=== PATIENT | male | born 1970 | race Caucasian/White ===

== ENCOUNTER 2018-02-26 12:01 | Inpatient (IN) | payer BC, OTHER ==
[~2018-02-26] VITALS: Ht 193 cm; Wt 143.2 kg
[2018-02-26 12:31] LABS: BASOPHILS % (AUTO) 0.1 % (0-1); EOSINOPHILS # (AUTO) 0.1 X10'3 (0-0.9); EOSINOPHILS % (AUTO) 1.1 % (0-6); HEMATOCRIT 36.3 % (42.0-52.0); HEMOGLOBIN 12.6 g/dl (14.0-17.9); LYMPHOCYTES # (AUTO) 0.8 X10'3 (1.1-4.8); LYMPHOCYTES % (AUTO) 14.4 % (21-51); MEAN CORPUSCULAR HEMOGLOBIN 30.3 PG (27.0-31.0); MEAN CORPUSCULAR HGB CONC 34.6 % (33.0-36.5); MEAN CORPUSCULAR VOLUME 87.7 FL (78-98); MEAN PLATELET VOLUME 7.9 FL (7.4-10.4); MONOCYTES # (AUTO) 0.4 X10'3 (0-0.9); NEUTROPHILS # (AUTO) 4.2 X10'3 (1.8-7.7); NEUTROPHILS % (AUTO) 77.4 % (42-75); PLATELET COUNT 210 X10'3 (140-440); RED BLOOD COUNT 4.14 X10'6 (4.70-6.10); RED CELL DISTRIBUTION WIDTH 14.6 % (11.5-14.5); WHITE BLOOD COUNT 5.5 X10'3 (4.5-11.0)
[2018-02-26 12:37] LABS: PARTIAL THROMBOPLASTIN TIME 25 SECONDS (22-32); PROTHROMBIN TIME 10.2 SECONDS (9.0-12.0)
[2018-02-26] MEDS ORDERED: aspirin 81mg tab.chew PO ONE (12:40)
[2018-02-26] MEDS ORDERED: metoprolol tartrate 1mg/ml inj IV ONE (12:40)
[2018-02-26 12:43] LABS: ALANINE AMINOTRANSFERASE 62 U/L (12-78); ALBUMIN 3.9 G/DL (3.4-5.0); ALBUMIN/GLOBULIN RATIO 0.9 (1.1-1.5); ALKALINE PHOSPHATASE 81 IU/L (46-116); ANION GAP 6 (8-16); ASPARTATE AMINO TRANSFERASE 45 U/L (10-37); BILIRUBIN,TOTAL 0.6 MG/DL (0.1-1.0); BLOOD UREA NITROGEN 11 MG/DL (7-18); BUN/CREATININE RATIO 13.9 (5.4-32.0); CALCIUM 9.1 MG/DL (8.5-10.1); CHLORIDE 101 MMOL/L (99-107); CREATININE 0.79 MG/DL (0.60-1.10); GLUCOSE 181 MG/DL (70-104); POTASSIUM 4.1 MMOL/L (3.5-5.1); SODIUM 137 MMOL/L (135-145); TOTAL PROTEIN 8.1 G/DL (6.4-8.2); eGFR > 90 ML/MIN
[2018-02-26] MEDS ORDERED: magnesium 4gm in 100ml NS 100 ML IV PRN (14:00)
[2018-02-26] MEDS ORDERED: potassium Cl 20 mEq SR tablet PO PRN ×2 (14:00)
[2018-02-26] MEDS ORDERED: mag hydrox/Alum hydrox/simeth 30ml oral suspension PO PRN (14:00)
[2018-02-26] MEDS ORDERED: magnesium hydroxide 30ml (MOM) UD suspension PO PRN (14:00)
[2018-02-26] MEDS ORDERED: acetaminophen 325mg tablet PO PRN (14:00)
[2018-02-26] MEDS ORDERED: ondansetron/PF 4mg/2ml inj IV PRN (14:00)
[2018-02-26] MEDS ORDERED: potassium Cl 40MEQ/NS 500ml 500 ML IV PRN ×2 (14:00)
[2018-02-26] MEDS ORDERED: magnesium 1gm/100ml D5W IVPB 100 ML IV PRN (14:00)
[2018-02-26] MEDS ORDERED: magnesium Cl slow-release 64mg tablet PO PRN (14:00)
[2018-02-26] MEDS ORDERED: FISH12002 PO (14:09)
[2018-02-26] MEDS ORDERED: PANT-47 PO (14:09)
[2018-02-26] MEDS ORDERED: NAPR-56 PO (14:09)
[2018-02-26] MEDS ORDERED: TRAZ-146 PO (14:09)
[2018-02-26] MEDS ORDERED: FENO48TA15 PO (14:09)
[2018-02-26] MEDS ORDERED: DOCU-28 PO (14:09)
[2018-02-26] MEDS ORDERED: LEVO175T2 PO (14:09)
[2018-02-26] MEDS ORDERED: CLON0.2T PO (14:09)
[2018-02-26] MEDS ORDERED: ATOR40TA3 PO (14:09)
[2018-02-26] MEDS ORDERED: METO-384 PO (14:09)
[2018-02-26] MEDS ORDERED: OXYC-150 PO (14:09)
[2018-02-26] MEDS ORDERED: insulin Lispro (HumaLOG) vial - multi-dose SQ SCH (14:10)
[2018-02-26] MEDS ORDERED: morphine pump (14:10)
[2018-02-26] MEDS ORDERED: regadenoson 0.4mg/5ml syringe IV PRN (14:10)
[2018-02-26] MEDS ORDERED: MESSAGE TO PHARMACY PO ONE (14:10)
[2018-02-26] MEDS ORDERED: lisinopril 5mg tablet PO SCH (14:10)
[2018-02-26] MEDS ORDERED: dextrose 50%-water 50ml dispensing syringe IV PRN ×2 (14:10)
[2018-02-26] MEDS: aspirin 81mg tab.chew PO SCH (14:10)
[2018-02-26] MEDS ORDERED: nitroGLYCERIN 0.4mg SUBLingual tab SL PRN (14:10)
[2018-02-26] MEDS ORDERED: CAFFEINE CITRATE 60 MG/3 ML injection vial IV PRN (14:10)
[2018-02-26] MEDS ORDERED: glucagon, human recombinant 1mg kit SUBCUT PRN (14:10)
[2018-02-26] MEDS ORDERED: dextrose ORAL solution 15 GM/59 ML bottle PO PRN ×2 (14:10)
[2018-02-26] MEDS ORDERED: metoprolol tartrate 1mg/ml inj IV PRN (14:10)
[2018-02-26 14:39] LABS: HEMOGLOBIN A1C 6.4 % (4.5-6.2)
[2018-02-26 15:25] VITALS: BP 147/107
[2018-02-26] MEDS ORDERED: METF500T PO (15:51)
[2018-02-26] MEDS ORDERED: FLUO40CA10 PO (15:51)
[2018-02-26 19:00] VITALS: BP 175/89
[2018-02-26] MEDS ORDERED: carVEDilol 12.5mg tablet PO SCH (20:00)
[2018-02-26] MEDS: furosemide 20MG tablet PO SCH (20:20)
[2018-02-26] MEDS: heparin, porcine 5000 units/ml vial SQ SCH (20:20)
[2018-02-26] MEDS ORDERED: insulin glargine (Lantus) pen - multi-dose SQ SCH (21:00)
[2018-02-26] MEDS: oxyCODONE/APAP 10/325mg tablet PO PRN (21:52)
[2018-02-26 23:00] VITALS: BP 164/84
[2018-02-27] VITALS (11 sets, daily range): BP systolic 151–185; BP diastolic 82–95
[2018-02-27 02:35] LABS: BASOPHILS % (AUTO) 0.4 % (0-1); EOSINOPHILS # (AUTO) 0.1 X10'3 (0-0.9); EOSINOPHILS % (AUTO) 1.4 % (0-6); HEMATOCRIT 36.5 % (42.0-52.0); HEMOGLOBIN 12.5 g/dl (14.0-17.9); LYMPHOCYTES # (AUTO) 1.3 X10'3 (1.1-4.8); LYMPHOCYTES % (AUTO) 24.1 % (21-51); MEAN CORPUSCULAR HEMOGLOBIN 30.2 PG (27.0-31.0); MEAN CORPUSCULAR HGB CONC 34.2 % (33.0-36.5); MEAN CORPUSCULAR VOLUME 88.4 FL (78-98); MEAN PLATELET VOLUME 7.9 FL (7.4-10.4); MONOCYTES # (AUTO) 0.4 X10'3 (0-0.9); MONOCYTES % (AUTO) 6.9 % (2-12); NEUTROPHILS # (AUTO) 3.7 X10'3 (1.8-7.7); NEUTROPHILS % (AUTO) 67.2 % (42-75); PLATELET COUNT 237 X10'3 (140-440); RED BLOOD COUNT 4.13 X10'6 (4.70-6.10); WHITE BLOOD COUNT 5.5 X10'3 (4.5-11.0)
[2018-02-27 02:50] LABS: ALANINE AMINOTRANSFERASE 57 U/L (12-78); ALBUMIN 3.9 G/DL (3.4-5.0); ALKALINE PHOSPHATASE 80 IU/L (46-116); ANION GAP 6 (8-16); ASPARTATE AMINO TRANSFERASE 38 U/L (10-37); BILIRUBIN,TOTAL 0.6 MG/DL (0.1-1.0); BLOOD UREA NITROGEN 12 MG/DL (7-18); BUN/CREATININE RATIO 19.4 (5.4-32.0); CALCIUM 9.1 MG/DL (8.5-10.1); CHLORIDE 101 MMOL/L (99-107); CREATININE 0.62 MG/DL (0.60-1.10); GLUCOSE 134 MG/DL (70-104); POTASSIUM 3.8 MMOL/L (3.5-5.1); SODIUM 140 MMOL/L (135-145); TOTAL CARBON DIOXIDE 33.4 MMOL/L (24-32); TOTAL PROTEIN 7.9 G/DL (6.4-8.2); eGFR > 90 ML/MIN
[2018-02-27 02:53] LABS: CHOL/HDL RATIO 4.3 (0.00-4.99); CHOLESTEROL 173 MG/DL (0-200); HDL CHOLESTEROL 40 MG/DL (35-60); LDL CHOLESTEROL 86 MG/DL (50-100); MAGNESIUM 1.7 MG/DL (1.5-2.4); TRIGLYCERIDES 330 MG/DL (20-135)
[2018-02-27] MEDS ORDERED: levoTHYROXINE 175mcg tablet PO SCH (07:00)
[2018-02-27] MEDS: furosemide 20MG tablet PO SCH (08:00)
[2018-02-27] MEDS ORDERED: K and/or MAG REPLACEMENT MC SCH (08:00)
[2018-02-27] MEDS ORDERED: FLUoxetine 20mg capsule PO SCH (08:00)
[2018-02-27] MEDS ORDERED: metoprolol succinate 25mg (24-HOUR) SR. Tablet PO SCH (08:00)
[2018-02-27] MEDS: oxyCODONE/APAP 10/325mg tablet PO PRN (08:43)
[2018-02-27] MEDS: aspirin 81mg tab.chew PO SCH (08:49)
[2018-02-27] MEDS ORDERED: cloNIDine 0.1 mg tablet PO SCH (09:25)
[2018-02-27] MEDS: heparin, porcine 5000 units/ml vial SQ SCH (09:52)
[2018-02-27] MEDS ORDERED: regadenoson 0.4mg/5ml syringe IV ONE (14:57)
[2018-02-27] MEDS ORDERED: CAFFEINE CITRATE 60 MG/3 ML injection vial IV ONE (14:57)
[2018-02-27] MEDS ORDERED: docusate sod 100mg capsule PO SCH (20:00)
[2018-02-27] MEDS ORDERED: fenofibrate 48mg tablet PO SCH (21:00)
[2018-02-27] MEDS ORDERED: atorvastatin 20mg tablet PO SCH (21:00)
[2018-02-27] MEDS ORDERED: traZODone 50mg tablet PO SCH (21:00)
== END 2018-02-27 18:45 | disposition home or self-care (01) | DRG 880 ==
LOC: ER 12:01 → ED HOLD 13:59 → EDBEDREQ 15:02 → PCU 3S 15:20
PROVIDERS: ADMIT Internal Medicine; ATTEND Family Medicine
PROC: 4A02XM4 Measurement of Cardiac Total Activity, External Approach (ICD-10-PCS; principal; 2018-02-27)
PROC: 3E033HZ Introduction of Radioactive Substance into Peripheral Vein, Percutaneous Approach (ICD-10-PCS; 2018-02-27)
DX: F41.1 Generalized anxiety disorder (principal); F41.0 Panic disorder [episodic paroxysmal anxiety]; E11.9 Type 2 diabetes mellitus without complications; E66.9 Obesity, unspecified; E78.00 Pure hypercholesterolemia, unspecified; E78.5 Hyperlipidemia, unspecified; F40.240 Claustrophobia; G47.33 Obstructive sleep apnea (adult) (pediatric); G89.4 Chronic pain syndrome; I10 Essential (primary) hypertension; I16.0 Hypertensive urgency; I20.9 Angina pectoris, unspecified; K21.9 Gastro-esophageal reflux disease without esophagitis; K44.9 Diaphragmatic hernia without obstruction or gangrene; Z68.38 Body mass index [BMI] 38.0-38.9, adult; Z82.49 Family history of ischemic heart disease and other diseases of the circulatory system; Z91.19 Patient's noncompliance with other medical treatment and regimen
CPT/HCPCS: 36415; 71045; 78452; 80053; 80061; 82948; 83036; 83735; 83880; 84484; 85025; 85610; 85730; 87070; 93005; 93017; 93306; 96374; 99285; A9500; J1644; J1815; J3490

== ENCOUNTER 2018-04-17 10:14 | Day surgery (SDC) | payer BC ==
[2018-04-16 16:34] LABS: BASOPHILS % (AUTO) 0.5 % (0-1); EOSINOPHILS % (AUTO) 0.8 % (0-6); HEMOGLOBIN 12.1 g/dl (14.0-17.9); LYMPHOCYTES # (AUTO) 1.2 X10'3 (1.1-4.8); LYMPHOCYTES % (AUTO) 21.4 % (21-51); MEAN CORPUSCULAR HEMOGLOBIN 30.4 PG (27.0-31.0); MEAN CORPUSCULAR HGB CONC 34.6 % (33.0-36.5); MEAN CORPUSCULAR VOLUME 88.1 FL (78-98); MEAN PLATELET VOLUME 7.7 FL (7.4-10.4); MONOCYTES # (AUTO) 0.5 X10'3 (0-0.9); MONOCYTES % (AUTO) 8.7 % (2-12); NEUTROPHILS # (AUTO) 3.8 X10'3 (1.8-7.7); NEUTROPHILS % (AUTO) 68.6 % (42-75); PLATELET COUNT 252 X10'3 (140-440); RED BLOOD COUNT 3.98 X10'6 (4.70-6.10); RED CELL DISTRIBUTION WIDTH 14.6 % (11.5-14.5); WHITE BLOOD COUNT 5.6 X10'3 (4.5-11.0)
[2018-04-16 16:44] LABS: PARTIAL THROMBOPLASTIN TIME 25 SECONDS (22-32); PROTHROMBIN TIME 10.6 SECONDS (9.0-12.0)
[2018-04-16 16:46] LABS: ALBUMIN 4.2 G/DL (3.4-5.0); ANION GAP 6 (8-16); BLOOD UREA NITROGEN 16 MG/DL (7-18); BUN/CREATININE RATIO 19.5 (5.4-32.0); CALCIUM 9.5 MG/DL (8.5-10.1); CHLORIDE 102 MMOL/L (99-107); CREATININE 0.82 MG/DL (0.60-1.10); GLUCOSE 119 MG/DL (70-104); POTASSIUM 4.2 MMOL/L (3.5-5.1); SODIUM 140 MMOL/L (135-145); TOTAL CARBON DIOXIDE 31.6 MMOL/L (24-32); eGFR > 90 ML/MIN
[~2018-04-17] VITALS: Ht 193 cm; Wt 136.0 kg
[2018-04-17] VITALS (14 sets, daily range): BP systolic 95–150; BP diastolic 49–94
[~2018-04-17 10:14] MED LIST: ATOR40TA3 PO; CLON0.2T PO; DOCU-28 PO; FENO48TA15 PO; FISH12002 PO; FLUO40CA10 PO; LEVO175T2 PO; METF500T PO; METO-384 PO; NAPR-56 PO; OXYC-150 PO; PANT-47 PO; TRAZ-219 PO; morphine pump
[2018-04-17] MEDS ORDERED: diphenhydrAMINE 25mg capsule PO PRN (10:35)
[2018-04-17] MEDS ORDERED: normal saline 1000ml 1,000 ML IV SCH (10:35)
[2018-04-17] MEDS ORDERED: LORazepam 0.5 MG tablet PO PRN (10:35)
[2018-04-17] MEDS ORDERED: RANI300C PO (10:57)
[2018-04-17] MEDS ORDERED: ASPI81TA52 PO (10:57)
[2018-04-17] MEDS ORDERED: METO100T14 PO (10:57)
[2018-04-17] MEDS ORDERED: FISH1CAP15 PO (10:57)
[2018-04-17] MEDS ORDERED: MULT-1085 PO (10:57)
[2018-04-17] MEDS ORDERED: NITR0.4T51 SL (10:57)
[2018-04-17] MEDS ORDERED: HYDR25TA4 PO (10:57)
[2018-04-17] MEDS ORDERED: MORPHINE PUMP (11:24)
[2018-04-17] MEDS ORDERED: fentaNYL/PF 50MCG/1 ML 2ML syringe ONE (11:57)
[2018-04-17] MEDS ORDERED: midazolam 2 mg/2 ml injection ONE (11:57)
[2018-04-17] MEDS ORDERED: heparin 1,000unit/ml 10ml vial 10 ML ONE (11:58)
[2018-04-17] MEDS ORDERED: lidocaine 1%/epinephrine 1:100,000 injection 50ml vial ONE (11:58)
[2018-04-17] MEDS ORDERED: iohexol 350MG/ML 100ml bottle IV ONE (11:58)
[2018-04-17] MEDS ORDERED: nitroGLYCERIN-Tridil 50MG/D5W 250 ML IV ONE (11:58)
[2018-04-17] MEDS ORDERED: iohexol 350 MG/ML 50ML vial IV ONE (11:58)
[2018-04-17] MEDS ORDERED: heparin 1,000 UNITS/NS 500ml 500 ML ONE (11:58)
[2018-04-17] MEDS ORDERED: diltiazem 5mg/ml 5ml inj. IV ONE (13:11)
[2018-04-17] MEDS ORDERED: oxyCODONE/APAP 10/325mg tablet PO PRN ×2 (16:00)
== END 2018-04-17 19:55 | disposition home or self-care (01) ==
LOC: SSTAY O 10:14
PROVIDERS: ATTEND Internal Medicine Cardiovascular Disease
DX: I25.118 Atherosclerotic heart disease of native coronary artery with other forms of angina pectoris (principal); I10 Essential (primary) hypertension; E11.9 Type 2 diabetes mellitus without complications; E78.5 Hyperlipidemia, unspecified; E66.9 Obesity, unspecified; E03.9 Hypothyroidism, unspecified; F41.8 Other specified anxiety disorders; K21.9 Gastro-esophageal reflux disease without esophagitis; F32.9 Major depressive disorder, single episode, unspecified; G47.33 Obstructive sleep apnea (adult) (pediatric); Z90.49 Acquired absence of other specified parts of digestive tract; Z79.82 Long term (current) use of aspirin; Z68.36 Body mass index [BMI] 36.0-36.9, adult; Z87.891 Personal history of nicotine dependence; Z79.891 Long term (current) use of opiate analgesic; Z79.84 Long term (current) use of oral hypoglycemic drugs; Z79.899 Other long term (current) drug therapy; Z98.890 Other specified postprocedural states; Z82.49 Family history of ischemic heart disease and other diseases of the circulatory system
CPT/HCPCS: 36415; 80048; 85025; 85610; 85730; 93005; 93458; 99152; 99153; A6257; A6449; C1769; J1644; J2250; J3010; J3490; J7030; Q0163; Q9967; A4620

== ENCOUNTER 2018-04-29 07:15 | Day surgery (SDC) | payer BC ==
[2018-04-25 10:39] LABS: BASOPHILS % (AUTO) 0.5 % (0-1); EOSINOPHILS % (AUTO) 1.2 % (0-6); LYMPHOCYTES # (AUTO) 0.9 X10'3 (1.1-4.8); LYMPHOCYTES % (AUTO) 21.3 % (21-51); MEAN CORPUSCULAR HEMOGLOBIN 30.2 PG (27.0-31.0); MEAN CORPUSCULAR HGB CONC 33.9 % (33.0-36.5); MEAN PLATELET VOLUME 7.5 FL (7.4-10.4); MONOCYTES # (AUTO) 0.4 X10'3 (0-0.9); MONOCYTES % (AUTO) 10.1 % (2-12); NEUTROPHILS # (AUTO) 2.8 X10'3 (1.8-7.7); NEUTROPHILS % (AUTO) 66.9 % (42-75); PRE OP HEMATOCRIT 34.2 % (42.0-52.0); PRE OP HEMOGLOBIN 11.6 g/dL (14.0-17.9); PRE OP PLATELET COUNT 226 X10'3 (140-440); RED BLOOD COUNT 3.84 X10'6 (4.70-6.10); RED CELL DISTRIBUTION WIDTH 14.6 % (11.5-14.5)
[2018-04-25 10:40] LABS: CLARITY,URINE CLEAR (Clear); COLOR,URINE YELLOW (Yellow); GLUCOSE, URINE 100 mg/dl (Neg); KETONES,URINE NEGATIVE (Neg); LEUKOCYTE ESTERASE ,URINE NEGATIVE (Neg); NITRITES, URINE NEGATIVE (Neg); OCCULT BLOOD,URINE NEGATIVE (Neg); PH,URINE 5.5 (4.8-8.0); PROTEIN,URINE 30 mg/dl (Neg); UA COLLECTION TYPE NON-SPECIFIED; UROBILINOGEN,URINE 0.2 E.U/dL (0.2-1.0)
[2018-04-25 10:45] LABS: BACTERIA,URINE NONE SEEN /HPF (Neg); RBC,URINE 0-2 /HPF (0-2); SQUAMOUS EPITHELIAL CELL,UR FEW /LPF (FEW); WBC,URINE 0-4 /HPF (0-4)
[2018-04-25 10:49] LABS: PRE OP PROTIME 10.1 SECONDS (9.0-12.0)
[2018-04-25 11:02] LABS: ALBUMIN 3.8 G/DL (3.4-5.0); ALKALINE PHOSPHATASE 89 IU/L (46-116); BLOOD UREA NITROGEN 17 MG/DL (7-18); BUN/CREATININE RATIO 20.7 (5.4-32.0); CALCIUM 9.1 MG/DL (8.5-10.1); CHLORIDE 101 MMOL/L (99-107); CREATININE 0.82 MG/DL (0.60-1.10); PRE OP ALT 48 U/L (30-65); PRE OP ANION GAP 7 (8-16); PRE OP AST 35 U/L (10-37); PRE OP BILIRUB, TOTAL 0.5 MG/DL (0.0-1.0); PRE OP POTASSIUM 4.3 MMOL/L (3.4-5.1); PRE OP SODIUM 141 MMOL/L (135-145); TOTAL CARBON DIOXIDE 33.2 MMOL/L (24-32); TOTAL PROTEIN 7.6 G/DL (6.4-8.2); eGFR > 90 ML/MIN
[2018-04-25 11:05] LABS: PRE OP GLUCOSE 223 MG/DL (70-104)
[2018-04-29] VITALS (11 sets, daily range): BP systolic 151–167; BP diastolic 80–100
[~2018-04-29] VITALS: Ht 193 cm; Wt 136.5 kg
[~2018-04-29 07:15] MED LIST changes: +ASPI81TA52 PO; +DOCUMENT DATE & TIME OF BETA-BLOCKER PO ONE; -FISH12002 PO; +FISH1CAP15 PO; +HYDR25TA4 PO; -METO-384 PO; +METO-411 PO; +NITR0.4T51 SL; +ceFAZolin inj. 3,000 MG in normal saline 100ml IV soln 100 ML IV ONE; +famotidine 20mg tablet PO ONE; -morphine pump; +ringers solution, lacted 1,000 ML IV SCH
[2018-04-29] MEDS ORDERED: MORPHINE INTSP (08:12)
[2018-04-29] MEDS ORDERED: ringers solution, lacted 1,000 ML IV SCH (09:11)
[2018-04-29] MEDS ORDERED: meperidine/PF 25mg/ml syringe IV PRN ×3 (09:15)
[2018-04-29] MEDS ORDERED: morphine 4 MG/ML inj SYRINge IV PRN ×2 (09:15)
[2018-04-29] MEDS ORDERED: ondansetron/PF 4mg/2ml inj IV PRN (09:15)
[2018-04-29] MEDS ORDERED: proCHLORperazine 10 MG/2 ml inj IV PRN (09:15)
[2018-04-29] MEDS ORDERED: ceFAZolin 1000mg inj ONE (09:38)
[2018-04-29] MEDS ORDERED: BUPIVAcaine/PF 2.5mg/ml (0.25%) 10ml vial ONE (09:38)
[2018-04-29] MEDS ORDERED: LIDOcaine 1%/PF 5ML 10 MG/ML VIAL ONE (09:48)
[2018-04-29] MEDS ORDERED: dexamethasone sod phosphate 10mg/ml inj ONE (09:48)
[2018-04-29] MEDS ORDERED: sevoflurane 250ml liquid IH ONE (09:48)
[2018-04-29] MEDS ORDERED: ondansetron/PF 4mg/2ml inj ONE (09:48)
[2018-04-29] MEDS ORDERED: propofol 10mg/ml 20ml vial IV ONE (09:48)
[2018-04-29] MEDS ORDERED: fentaNYL/PF 50MCG/1 ML 2ML syringe ONE ×2 (09:58→10:41)
[2018-04-29] MEDS ORDERED: midazolam 2 mg/2 ml injection ONE (10:00)
[2018-04-29] MEDS ORDERED: propofol inj 20 ML IV ONE (10:00)
[2018-04-29] MEDS ORDERED: ketorolac trometh. 30mg/ml inj. ONE (11:11)
== END 2018-04-29 12:48 | disposition home or self-care (01) ==
LOC: PRE-OP 07:15
PROVIDERS: ATTEND Surgery
DX: K40.90 Unilateral inguinal hernia, without obstruction or gangrene, not specified as recurrent (principal); D17.6 Benign lipomatous neoplasm of spermatic cord; G89.29 Other chronic pain; I10 Essential (primary) hypertension; E66.9 Obesity, unspecified; I25.10 Atherosclerotic heart disease of native coronary artery without angina pectoris; E78.5 Hyperlipidemia, unspecified; K21.9 Gastro-esophageal reflux disease without esophagitis; E03.9 Hypothyroidism, unspecified; E11.9 Type 2 diabetes mellitus without complications; F32.9 Major depressive disorder, single episode, unspecified; Z68.36 Body mass index [BMI] 36.0-36.9, adult; Z87.891 Personal history of nicotine dependence; Z90.49 Acquired absence of other specified parts of digestive tract; Z79.891 Long term (current) use of opiate analgesic; Z79.82 Long term (current) use of aspirin; Z79.84 Long term (current) use of oral hypoglycemic drugs; Z98.890 Other specified postprocedural states; Z79.899 Other long term (current) drug therapy
CPT/HCPCS: 36415; 49505; 80053; 81001; 82948; 85025; 85610; 85730; A6449; C1781; J0690; J1100; J1885; J2001; J2175; J2250; J2405; J2704; J3010; J3490; J7030; J7120; A7000

== ENCOUNTER 2019-03-16 12:35 | Inpatient (IN) | payer BC ==
[~2019-03-16] VITALS: Ht 193 cm; Wt 135.9 kg
[~2019-03-16 12:35] MED LIST changes: -ATOR40TA3 PO; +ATOR40TA7 PO; -DOCU-28 PO; -DOCUMENT DATE & TIME OF BETA-BLOCKER PO ONE; +MORPHINE INTSP; -ceFAZolin inj. 3,000 MG in normal saline 100ml IV soln 100 ML IV ONE; -famotidine 20mg tablet PO ONE; -ringers solution, lacted 1,000 ML IV SCH
[2019-03-16 13:12] LABS: BASOPHILS % (AUTO) 0.5 % (0-1); EOSINOPHILS % (AUTO) 0.1 % (0-6); HEMATOCRIT 39.3 % (42.0-52.0); HEMOGLOBIN 13.2 g/dl (14.0-17.9); LYMPHOCYTES # (AUTO) 0.7 X10'3 (1.1-4.8); LYMPHOCYTES % (AUTO) 10.5 % (21-51); MEAN CORPUSCULAR HEMOGLOBIN 29.7 PG (27.0-31.0); MEAN CORPUSCULAR HGB CONC 33.4 g/dL (33.0-36.5); MEAN CORPUSCULAR VOLUME 88.7 FL (78-98); MEAN PLATELET VOLUME 7.7 FL (7.4-10.4); MONOCYTES # (AUTO) 0.3 X10'3 (0-0.9); MONOCYTES % (AUTO) 4.4 % (2-12); NEUTROPHILS # (AUTO) 5.8 X10'3 (1.8-7.7); NEUTROPHILS % (AUTO) 84.5 % (42-75); PLATELET COUNT 247 X10'3 (140-440); RED BLOOD COUNT 4.44 X10'6 (4.70-6.10); WHITE BLOOD COUNT 6.9 X10'3 (4.5-11.0)
[2019-03-16 13:21] LABS: ALANINE AMINOTRANSFERASE 50 U/L (12-78); ALBUMIN/GLOBULIN RATIO 0.9 (1.1-1.5); ALKALINE PHOSPHATASE 76 IU/L (46-116); ANION GAP 11 (8-16); ASPARTATE AMINO TRANSFERASE 41 U/L (10-37); BILIRUBIN,TOTAL 0.5 MG/DL (0.1-1.0); BLOOD UREA NITROGEN 10 MG/DL (7-18); BUN/CREATININE RATIO 11.1 (5.4-32.0); CALCIUM 9.4 MG/DL (8.5-10.1); CHLORIDE 102 MMOL/L (99-107); GLUCOSE 187 MG/DL (70-104); POTASSIUM 3.5 MMOL/L (3.5-5.1); SODIUM 140 MMOL/L (135-145); TOTAL CARBON DIOXIDE 27.4 MMOL/L (24-32); TOTAL PROTEIN 8.3 G/DL (6.4-8.2); eGFR 90 ML/MIN
[2019-03-16] MEDS ORDERED: normal saline 1000ML IV soln IVB ONE (13:25)
[2019-03-16 13:28] LABS: PARTIAL THROMBOPLASTIN TIME 27 SECONDS (22-32)
[2019-03-16 14:12] LABS: D-DIMER 0.23 MG/L FEU (0-0.50)
[2019-03-16] MEDS ORDERED: LORazepam 2 mg/ml vial IV ONE ×2 (14:40→17:35)
[2019-03-16] MEDS ORDERED: ketorolac tromethamine 15mg/ml inj. IV ONE (14:45)
[2019-03-16] MEDS ORDERED: OMEP40CA13 PO (15:00)
[2019-03-16] MEDS ORDERED: MULT1TAB74 PO (15:32)
[2019-03-16] MEDS ORDERED: RANI300T4 PO (15:32)
[2019-03-16] MEDS ORDERED: GABA-532 PO (15:32)
[2019-03-16] MEDS ORDERED: ondansetron/PF 4mg/2ml inj IV PRN (15:35)
[2019-03-16] MEDS ORDERED: magnesium 4gm in 100ml NS 100 ML IV PRN (15:35)
[2019-03-16] MEDS ORDERED: mag hydrox/Alum hydrox/simeth 30ml oral suspension PO PRN (15:35)
[2019-03-16] MEDS ORDERED: magnesium 2GM in 50ml NS 50 ML IV PRN (15:35)
[2019-03-16] MEDS ORDERED: magnesium hydroxide 30ml (MOM) UD suspension PO PRN (15:35)
[2019-03-16] MEDS ORDERED: potassium CL 10mEq/100ml bag 100 ML IV PRN ×2 (15:35)
[2019-03-16] MEDS ORDERED: acetaminophen 325mg tablet PO PRN (15:35)
[2019-03-16] MEDS ORDERED: potassium Cl 20 mEq SR tablet PO PRN ×2 (15:35)
[2019-03-16] MEDS ORDERED: dextrose 50%-water 50ml dispensing syringe IV PRN ×2 (16:50)
[2019-03-16] MEDS ORDERED: dextrose ORAL solution 15 GM/59 ML bottle PO PRN ×2 (16:50)
[2019-03-16] MEDS ORDERED: MESSAGE TO PHARMACY PO ONE (16:50)
[2019-03-16] MEDS ORDERED: glucagon, human recombinant 1mg kit SUBCUT PRN (16:50)
[2019-03-16 17:23] LABS: HEMOGLOBIN A1C 6.2 % (4.5-6.2)
[2019-03-16 19:30] VITALS: BP 190/97
--- NOTE | 2019-03-16 19:30 | NUR ---
I have received report from Zhanna QUINTERO and had the opportunity to ask questions and assume patient care.
[2019-03-16 19:40] VITALS: BP 179/102
[2019-03-16] MEDS ORDERED: LORazepam 2 mg/ml vial IV PRN (20:05)
[2019-03-16] MEDS: omega-3 acid ethyl esters 1GM capsule PO SCH (20:14)
[2019-03-16 20:41] LABS: CLARITY,URINE CLEAR (Clear); COLOR,URINE YELLOW (Yellow); GLUCOSE, URINE 100 mg/dl (Neg); KETONES,URINE NEGATIVE (Neg); LEUKOCYTE ESTERASE ,URINE NEGATIVE (Neg); NITRITES, URINE NEGATIVE (Neg); OCCULT BLOOD,URINE NEGATIVE (Neg); PH,URINE 7.5 (4.8-8.0); PROTEIN,URINE 30 mg/dl (Neg); UROBILINOGEN,URINE 0.2 E.U/dL (0.2-1.0)
[2019-03-16 20:47] LABS: UA COLLECTION TYPE NON-SPECIFIED; URINE AMPHETAMINE SCREEN NEGATIVE (Neg); URINE BARBITUATE SCREEN NEGATIVE (Neg); URINE BENZODIAZEPINES SCREEN NEGATIVE (Neg); URINE CANNABINOID SCREEN NEGATIVE (Neg); URINE COCAINE SCREEN NEGATIVE (Neg); URINE METHADONE SCREEN NEGATIVE (Neg); URINE OPIATE SCREEN POSITIVE (Neg); URINE PHENCYCLIDINE SCREEN NEGATIVE (Neg)
[2019-03-16 20:53] LABS: BACTERIA,URINE FEW /HPF (Neg); RBC,URINE 0-2 /HPF (0-2); SQUAMOUS EPITHELIAL CELL,UR FEW /LPF (FEW); WBC,URINE 0-4 /HPF (0-4)
[2019-03-16 21:00] VITALS: BP 187/104
[2019-03-16] MEDS ORDERED: insulin glargine (Lantus) pen - multi-dose SQ SCH (21:00)
[2019-03-16] MEDS ORDERED: traZODone 50mg tablet PO SCH (21:00)
[2019-03-16] MEDS ORDERED: non-formulary drug (Trazodone HCl 1 TAB) PO SCH (21:00)
[2019-03-16] MEDS ORDERED: non-formulary drug (Fish Oil/Dha/Epa (Fish Oil 1,200 Mg Fish Oil) 1 EACH) PO SCH (21:00)
[2019-03-16] MEDS ORDERED: atorvastatin 20mg tablet PO SCH (21:00)
[2019-03-16] MEDS ORDERED: gabapentin 300mg capsule PO SCH (21:00)
[2019-03-16] MEDS ORDERED: non-formulary drug (Atorvastatin Calcium (Lipitor) 1 TABLET) PO SCH (21:00)
[2019-03-16] MEDS ORDERED: temazepam 15mg capsule PO PRN (22:05)
[2019-03-16 22:10] LABS: ABG BASE EXCESS 1.2 mmol/L (-2.0-3.0); ABG HCO3 24.5 mmol/L (22.0-26.0); ABG OXYGEN SATURATION 94.4 % (95-98); ABG PCO2 (T) 34.4 mmHg (35.0-45.0); ABG PO2 (T) 71.9 mmHg (83-108); FCOHb 0.5 % (0.5-1.5); FMetHb 0.2 % (0.3-1.12); FO2Hb 93.7 % (94-100); RESPIRATORY RATE (OBSERVED) 16 b/min; TOTAL HEMOGLOBIN 12.1 G/dl (14.0-17.9)
[2019-03-17 01:30] LABS: BASOPHILS % (AUTO) 0.4 % (0-1); EOSINOPHILS % (AUTO) 0.1 % (0-6); HEMATOCRIT 33.7 % (42.0-52.0); HEMOGLOBIN 11.4 g/dl (14.0-17.9); LYMPHOCYTES # (AUTO) 1.3 X10'3 (1.1-4.8); MEAN CORPUSCULAR HEMOGLOBIN 29.8 PG (27.0-31.0); MEAN CORPUSCULAR VOLUME 87.7 FL (78-98); MEAN PLATELET VOLUME 7.7 FL (7.4-10.4); MONOCYTES # (AUTO) 0.5 X10'3 (0-0.9); MONOCYTES % (AUTO) 7.2 % (2-12); NEUTROPHILS # (AUTO) 5.6 X10'3 (1.8-7.7); NEUTROPHILS % (AUTO) 75.3 % (42-75); PLATELET COUNT 207 X10'3 (140-440); RED BLOOD COUNT 3.84 X10'6 (4.70-6.10); WHITE BLOOD COUNT 7.4 X10'3 (4.5-11.0)
[2019-03-17 01:43] LABS: ALANINE AMINOTRANSFERASE 43 U/L (12-78); ALBUMIN 3.5 G/DL (3.4-5.0); ALBUMIN/GLOBULIN RATIO 0.9 (1.1-1.5); ALKALINE PHOSPHATASE 61 IU/L (46-116); ANION GAP 7 (8-16); ASPARTATE AMINO TRANSFERASE 31 U/L (10-37); BILIRUBIN,TOTAL 0.4 MG/DL (0.1-1.0); BLOOD UREA NITROGEN 9 MG/DL (7-18); BUN/CREATININE RATIO 11.3 (5.4-32.0); CALCIUM 8.5 MG/DL (8.5-10.1); CHLORIDE 106 MMOL/L (99-107); GLUCOSE 143 MG/DL (70-104); POTASSIUM 3.4 MMOL/L (3.5-5.1); SODIUM 143 MMOL/L (135-145); TOTAL CARBON DIOXIDE 29.6 MMOL/L (24-32); TOTAL PROTEIN 7.2 G/DL (6.4-8.2); eGFR > 90 ML/MIN
[2019-03-17 01:46] LABS: CHOLESTEROL 147 MG/DL (0-200); HDL CHOLESTEROL 37 MG/DL (35-60); LDL CHOLESTEROL 77 MG/DL (50-100); MAGNESIUM 1.5 MG/DL (1.5-2.4); TRIGLYCERIDES 192 MG/DL (20-135)
[2019-03-17 02:00] VITALS: BP 150/81
[2019-03-17 06:00] VITALS: BP 167/95
--- NOTE | 2019-03-17 06:20 | NUR ---
Problems reprioritized. Patient report given, questions answered & plan of care reviewed with Shanta QUINTERO.
--- NOTE | 2019-03-17 06:22 | NUR ---
Patient in room ORTHO 4014. I have received report from INGRID Hou and had the opportunity to ask questions and assume patient care.
--- NOTE | 2019-03-17 07:30 | NUR ---
Pt seen for assessment; neuro assessment normal. No confusion. States "feels 100 times better and back to normal". is at bedside and in agreement.
[2019-03-17] MEDS ORDERED: famotidine 20mg tablet PO SCH (08:00)
[2019-03-17] MEDS ORDERED: levoTHYROXINE 175mcg tablet PO SCH (08:00)
[2019-03-17] MEDS ORDERED: FLUoxetine 20mg capsule PO SCH (08:00)
[2019-03-17] MEDS ORDERED: non-formulary drug (Multivitamins 1 TAB) PO SCH (08:00)
[2019-03-17] MEDS ORDERED: non-formulary drug (Metoprolol Succinate 1 TAB) PO SCH (08:00)
[2019-03-17] MEDS ORDERED: pneumococcal 23-VAL P-sac vacc 25 mcg/0.5ml vial IMVAC ONE (08:00)
[2019-03-17] MEDS ORDERED: non-formulary drug (Ranitidine HCl 1 TAB) PO SCH (08:00)
[2019-03-17] MEDS ORDERED: HYDROchlorothiazide 25mg tablet PO SCH (08:00)
[2019-03-17] MEDS ORDERED: non-formulary drug (Fluoxetine HCl (Prozac) 1 CAP) PO SCH (08:00)
[2019-03-17] MEDS ORDERED: aspirin 81mg tablet.DR PO SCH (08:00)
[2019-03-17] MEDS ORDERED: metoprolol succinate 25mg (24-HOUR) SR. Tablet PO SCH (08:00)
[2019-03-17] MEDS ORDERED: fenofibrate 48mg tablet PO SCH (08:00)
[2019-03-17] MEDS ORDERED: multivitamins, therapeutics tablet PO SCH (08:00)
[2019-03-17] MEDS ORDERED: pantoprazole 40mg Tablet.DR PO SCH (08:00)
[2019-03-17] MEDS ORDERED: K and/or MAG REPLACEMENT MC SCH (08:00)
[2019-03-17] MEDS ORDERED: enoxaparin 40mg/0.4ml syringe SQ SCH (08:00)
[2019-03-17] MEDS: MISCELLANEOUS INJECTION IV SCH ×2 (08:00→16:01)
[2019-03-17] MEDS: omega-3 acid ethyl esters 1GM capsule PO SCH ×2 (08:30→13:11)
[2019-03-17] MEDS: insulin Lispro (HumaLOG) vial - multi-dose SQ SCH ×2 (08:38→13:39)
[2019-03-17] MEDS ORDERED: LORazepam 2 mg/ml vial IV ONE (09:40)
[2019-03-17 10:00] VITALS: BP 176/93
--- NOTE | 2019-03-17 14:01 | NUR ---
DM Consult: Pt A1C <7 and not appropriate for DM ed at this time. Addendum: 03/17/19 at [address] Amended: Links added.
== END 2019-03-17 18:40 | disposition home or self-care (01) | DRG 92 ==
LOC: ER 12:35 → ORTHO 4S 18:50 → CMPBEDREQ 19:45
PROVIDERS: ADMIT Family Medicine; ATTEND Family Medicine
PROC: 3E0234Z Introduction of Serum, Toxoid and Vaccine into Muscle, Percutaneous Approach (ICD-10-PCS; principal; 2019-03-17)
DX: G92 Toxic encephalopathy (principal); R44.3 Hallucinations, unspecified; E03.9 Hypothyroidism, unspecified; E11.9 Type 2 diabetes mellitus without complications; E78.00 Pure hypercholesterolemia, unspecified; G47.33 Obstructive sleep apnea (adult) (pediatric); R19.7 Diarrhea, unspecified; I10 Essential (primary) hypertension; Z98.1 Arthrodesis status; Z23 Encounter for immunization; Z79.899 Other long term (current) drug therapy; Z79.82 Long term (current) use of aspirin
CPT/HCPCS: 36415; 36600; 70450; 70544; 70547; 70551; 71045; 80053; 80061; 80305; 81001; 82803; 82948; 83036; 83605; 83735; 83880; 84145; 84443; 84484; 85018; 85025; 85379; 85610; 85730; 87040; 87081; 90732; 92508; 92616; 93005; 93306; 93880; 96361; 96374; 96375; 96376; 97110; 97161; 97530; 99285; G0378; J1650; J1815; J1885; J2060

== ENCOUNTER 2019-04-17 13:04 | Observation (INO) | payer BC ==
[~2019-04-17] VITALS: Ht 193 cm; Wt 134.1 kg
[~2019-04-17 13:04] MED LIST changes: -CLON0.2T PO; +GABA-532 PO; +MULT1TAB74 PO; -NAPR-56 PO; -NITR0.4T51 SL; -OXYC-150 PO; +RANI300T4 PO
[2019-04-17 13:45] LABS: BASOPHILS % (AUTO) 0.4 % (0-1); EOSINOPHILS % (AUTO) 0.1 % (0-6); HEMATOCRIT 36.2 % (42.0-52.0); HEMOGLOBIN 11.9 g/dl (14.0-17.9); LYMPHOCYTES # (AUTO) 0.8 X10'3 (1.1-4.8); LYMPHOCYTES % (AUTO) 13.6 % (21-51); MEAN CORPUSCULAR HEMOGLOBIN 29.2 PG (27.0-31.0); MEAN CORPUSCULAR HGB CONC 32.9 g/dL (33.0-36.5); MEAN CORPUSCULAR VOLUME 88.6 FL (78-98); MEAN PLATELET VOLUME 7.4 FL (7.4-10.4); MONOCYTES # (AUTO) 0.3 X10'3 (0-0.9); MONOCYTES % (AUTO) 4.6 % (2-12); NEUTROPHILS # (AUTO) 4.8 X10'3 (1.8-7.7); NEUTROPHILS % (AUTO) 81.3 % (42-75); PLATELET COUNT 282 X10'3 (140-440); RED BLOOD COUNT 4.09 X10'6 (4.70-6.10); RED CELL DISTRIBUTION WIDTH 15.2 % (11.5-14.5); WHITE BLOOD COUNT 5.9 X10'3 (4.5-11.0)
[2019-04-17 13:58] LABS: PARTIAL THROMBOPLASTIN TIME 25 SECONDS (22-32)
[2019-04-17 14:02] LABS: ALANINE AMINOTRANSFERASE 51 U/L (12-78); ALBUMIN 3.8 G/DL (3.4-5.0); ALBUMIN/GLOBULIN RATIO 0.9 (1.1-1.5); ALKALINE PHOSPHATASE 72 IU/L (46-116); ANION GAP 9 (8-16); ASPARTATE AMINO TRANSFERASE 36 U/L (10-37); BILIRUBIN,TOTAL 0.6 MG/DL (0.1-1.0); BLOOD UREA NITROGEN 9 MG/DL (7-18); CALCIUM 10.2 MG/DL (8.5-10.1); CHLORIDE 104 MMOL/L (99-107); CREATININE 0.75 MG/DL (0.60-1.10); GLUCOSE 176 MG/DL (70-104); POTASSIUM 3.7 MMOL/L (3.5-5.1); SODIUM 141 MMOL/L (135-145); TOTAL CARBON DIOXIDE 27.7 MMOL/L (24-32); eGFR > 90 ML/MIN
[2019-04-17] MEDS ORDERED: normal saline 1000ML IV soln IVB ONE ×2 (14:35→16:30)
[2019-04-17] MEDS ORDERED: sucralfate 1gm/10ml UD suspension PO STA (16:08)
[2019-04-17] MEDS ORDERED: mag hydrox/Alum hydrox/simeth 30ml oral suspension PO ONE (16:10)
[2019-04-17] MEDS ORDERED: pantoprazole 40 MG vial IV ONE (16:10)
[2019-04-17] MEDS ORDERED: LIDOcaine Viscous 15ml cup MM PRN (16:10)
[2019-04-17] MEDS ORDERED: ONDA4TAB6 PO (16:23)
[2019-04-17 16:54] LABS: ETHANOL < 0.010 GM/DL (0.0-0.010); MAGNESIUM 1.4 MG/DL (1.5-2.4)
[2019-04-17 17:04] LABS: CLARITY,URINE CLEAR (Clear); COLOR,URINE YELLOW (Yellow); GLUCOSE, URINE NEGATIVE (Neg); KETONES,URINE NEGATIVE (Neg); LEUKOCYTE ESTERASE ,URINE NEGATIVE (Neg); NITRITES, URINE NEGATIVE (Neg); OCCULT BLOOD,URINE NEGATIVE (Neg); PH,URINE 7.5 (4.8-8.0); PROTEIN,URINE NEGATIVE (Neg); UROBILINOGEN,URINE 0.2 E.U/dL (0.2-1.0)
[2019-04-17 17:06] LABS: UA COLLECTION TYPE VOIDED
[2019-04-17 17:19] LABS: URINE AMPHETAMINE SCREEN NEGATIVE (Neg); URINE BARBITUATE SCREEN NEGATIVE (Neg); URINE BENZODIAZEPINES SCREEN NEGATIVE (Neg); URINE CANNABINOID SCREEN NEGATIVE (Neg); URINE COCAINE SCREEN NEGATIVE (Neg); URINE METHADONE SCREEN NEGATIVE (Neg); URINE OPIATE SCREEN NEGATIVE (Neg); URINE PHENCYCLIDINE SCREEN NEGATIVE (Neg)
--- NOTE | 2019-04-17 17:58 | NUR ---
PT YELLING OUT HELP, HE STATES HIS SKIN IS CRAWLING AND HE FEEL LIKE HE IS "WITHDRAWING" HIS STATE THE SAME THING HAPPENED 1 MONTH AGO WHEN HE WAS HER WITH SAME S/S. ATTEMPTED TO FIND DR BECKMAN FOR THE PAST 15MIN. NOT ABLE TO FIND HIM. MALI VIGIL NOTIFED.
--- NOTE | 2019-04-17 18:12 | NUR ---
PTS CAME UP AGAIN AND STATES PT IS REALY ANXIOUS. AGAIN ATTEPTED TO FIND DR BECKMAN. MALI VIGIL NOTIFIED SHE WAS ABLE TO CALL DR BECKMAN ON HIS CELL PHONE. PT NOW AT BS TO SEE PT
[2019-04-17] MEDS ORDERED: magnesium oxide 400mg tablet PO ONE (18:15)
[2019-04-17] MEDS ORDERED: MAGN200T8 PO (18:16)
[2019-04-17] MEDS ORDERED: QUET25TA PO (18:29)
[2019-04-17] MEDS ORDERED: diphenhydrAMINE 25mg capsule PO ONE (18:30)
[2019-04-17] MEDS ORDERED: OLANZapine 5mg rapidly disint. tablet PO ONE (18:30)
[2019-04-17] MEDS ORDERED: diphenhydrAMINE 50 mg/ml inj IV ONE (18:35)
[2019-04-17] MEDS ORDERED: benztropine 1mg tablet PO SCH (18:40)
[2019-04-17] MEDS ORDERED: mag hydrox/Alum hydrox/simeth 30ml oral suspension PO PRN (19:35)
[2019-04-17] MEDS ORDERED: morphine 2 MG/ML inj. syringe IV PRN ×2 (19:35)
[2019-04-17] MEDS ORDERED: HYDROcodone/acetaminophen 5mg/325mg tablet PO PRN (19:35)
[2019-04-17] MEDS ORDERED: acetaminophen 325mg tablet PO PRN ×2 (19:35)
[2019-04-17] MEDS ORDERED: magnesium hydroxide 30ml (MOM) UD suspension PO PRN (19:35)
[2019-04-17] MEDS ORDERED: ondansetron/PF 4mg/2ml inj IV PRN (19:35)
--- NOTE | 2019-04-17 20:41 | NUR ---
Received report form Magy QUINTERO. Will assume patient care.
[2019-04-17 21:00] VITALS: BP 181/94
[2019-04-17 22:03] VITALS: BP 175/91
--- NOTE | 2019-04-17 22:10 | NUR ---
Dr. Buchanan in to see patient.
[2019-04-17] MEDS ORDERED: loperamide 2mg capsule PO PRN (22:15)
[2019-04-17] MEDS ORDERED: furosemide 20 MG/2 ML vial IV ONE (22:15)
[2019-04-17] MEDS ORDERED: glucagon, human recombinant 1mg kit SUBCUT PRN (22:35)
[2019-04-17] MEDS ORDERED: insulin Lispro (HumaLOG) vial - multi-dose SQ SCH (22:35)
[2019-04-17] MEDS ORDERED: dextrose 50%-water 50ml dispensing syringe IV PRN ×2 (22:35)
[2019-04-17] MEDS ORDERED: MESSAGE TO PHARMACY PO ONE (22:35)
[2019-04-17] MEDS ORDERED: dextrose ORAL solution 15 GM/59 ML bottle PO PRN ×2 (22:35)
--- NOTE | 2019-04-17 22:49 | NUR ---
Patient requesting blood sugar to be check in the morning.
--- NOTE | 2019-04-17 23:00 | NUR ---
Finished admitting patient. Patient denies any nausea or hallucination. Patient AOx4. No itching. BP in the high 170-180's, Dr. Buchanan aware order lasix 20mg now and nitro patch. Patient states he have mild chest pain in mid-sternum region, rating it 3/10. Nothing new, has not changed since he was at home. Will continue to monitor.
[2019-04-17] MEDS: nitroGLYCERIN 0.4mg/hour patch TD SCH (23:14)
--- NOTE | 2019-04-17 23:21 | NUR ---
Patient refused 2 nurse skin check to be done.
[2019-04-18] MEDS: traZODone 50mg tablet PO SCH ×2 (00:41→21:12)
[2019-04-18 00:50] VITALS: BP 160/94
[2019-04-18 06:00] VITALS: BP 134/72
--- NOTE | 2019-04-18 06:05 | NUR ---
Patient in room ORTHO 4024. I have received report from Tamara and had the opportunity to ask questions and assume patient care.
--- NOTE | 2019-04-18 06:24 | NUR ---
Problems reprioritized. Patient report given, questions answered & plan of care reviewed with Ya QUINTERO.
[2019-04-18 06:51] LABS: BASOPHILS % (AUTO) 0.3 % (0-1); EOSINOPHILS % (AUTO) 0.3 % (0-6); HEMATOCRIT 31.7 % (42.0-52.0); HEMOGLOBIN 10.6 g/dl (14.0-17.9); LYMPHOCYTES # (AUTO) 1.1 X10'3 (1.1-4.8); LYMPHOCYTES % (AUTO) 19.7 % (21-51); MEAN CORPUSCULAR HEMOGLOBIN 29.7 PG (27.0-31.0); MEAN CORPUSCULAR HGB CONC 33.6 g/dL (33.0-36.5); MEAN CORPUSCULAR VOLUME 88.3 FL (78-98); MEAN PLATELET VOLUME 7.7 FL (7.4-10.4); MONOCYTES # (AUTO) 0.4 X10'3 (0-0.9); MONOCYTES % (AUTO) 8.1 % (2-12); NEUTROPHILS # (AUTO) 3.9 X10'3 (1.8-7.7); NEUTROPHILS % (AUTO) 71.6 % (42-75); PLATELET COUNT 248 X10'3 (140-440); RED BLOOD COUNT 3.59 X10'6 (4.70-6.10); RED CELL DISTRIBUTION WIDTH 15.4 % (11.5-14.5); WHITE BLOOD COUNT 5.4 X10'3 (4.5-11.0)
[2019-04-18 06:59] LABS: ALBUMIN 3.3 G/DL (3.4-5.0); ANION GAP 10 (8-16); BLOOD UREA NITROGEN 8 MG/DL (7-18); BUN/CREATININE RATIO 10.5 (5.4-32.0); CALCIUM 9.3 MG/DL (8.5-10.1); CHLORIDE 108 MMOL/L (99-107); CREATININE 0.76 MG/DL (0.60-1.10); GLUCOSE 154 MG/DL (70-104); POTASSIUM 3.3 MMOL/L (3.5-5.1); SODIUM 145 MMOL/L (135-145); TOTAL CARBON DIOXIDE 27.2 MMOL/L (24-32); eGFR > 90 ML/MIN
[2019-04-18] MEDS ORDERED: metFORMIN 500mg tablet PO SCH (07:30)
--- NOTE | 2019-04-18 08:01 | NUR ---
PAGER ID: [phone] MESSAGE: Good morning Dr. Correa, Mr. Hillman in rm 4024A has a potassium of 3.3, may we replace per protocol? Please advise Thank you Ya #[phone]
[2019-04-18] MEDS: OMEGA-3/DHA/EPA/FISH OIL 1 EACH CAPSULE.DR PO SCH ×3 (08:17→21:12)
[2019-04-18] MEDS: aspirin 81mg tablet.DR PO SCH (08:17)
[2019-04-18] MEDS: HYDROchlorothiazide 25mg tablet PO SCH (08:17)
[2019-04-18] MEDS: pantoprazole 40mg Tablet.DR PO SCH (08:18)
[2019-04-18] MEDS: levoTHYROXINE 175mcg tablet PO SCH (08:18)
[2019-04-18] MEDS: magnesium oxide 400mg tablet PO SCH ×2 (08:18→21:11)
[2019-04-18] MEDS: FLUoxetine 20mg capsule PO SCH (08:18)
[2019-04-18] MEDS: fenofibrate 48mg tablet PO SCH (08:19)
[2019-04-18] MEDS: multivitamins, therapeutics tablet PO SCH (08:19)
[2019-04-18] MEDS: metoprolol succinate 25mg (24-HOUR) SR. Tablet PO SCH (08:19)
[2019-04-18] MEDS: furosemide 20 MG/2 ML vial IV SCH ×2 (08:24→21:15)
[2019-04-18] MEDS: K and/or MAG REPLACEMENT MC SCH (08:40)
[2019-04-18] MEDS ORDERED: potassium Cl 20 mEq SR tablet PO PRN (08:40)
[2019-04-18] MEDS ORDERED: potassium CL 10mEq/100ml bag 100 ML IV PRN ×2 (08:40)
[2019-04-18] MEDS: potassium Cl 20 mEq SR tablet PO PRN ×3 (09:32→17:40)
[2019-04-18 10:00] VITALS: BP 162/92
--- NOTE | 2019-04-18 10:16 | NUR ---
DM consult: Patient's A1c is 6.1, DM education not warranted at this time. Will continue to follow. Addendum: 04/18/19 at [address] Amended: Links added.
--- NOTE | 2019-04-18 13:45 | NUR ---
PAGER ID: [phone] MESSAGE: Nikole Correa, Mr. Hillman in [phone] in anxious/ inquiring about DC. Thank you Ya # [phone]
[2019-04-18] MEDS ORDERED: nitroGLYCERIN 0.4mg SUBLingual tab SL PRN (15:55)
[2019-04-18] MEDS ORDERED: regadenoson 0.4mg/5ml syringe IV PRN (15:55)
[2019-04-18] MEDS ORDERED: aminophylline 250mg/10ml inj. IV PRN (15:55)
[2019-04-18] MEDS ORDERED: metoprolol tartrate 1mg/ml inj IV PRN (15:55)
[2019-04-18 17:01] LABS: % IRON SATURATION 18 % (11-46); IRON 54 UG/DL (53-167); TOTAL IRON BINDING CAPACITY 298 UG/DL (259-388)
[2019-04-18 18:00] VITALS: BP 182/83
--- NOTE | 2019-04-18 18:14 | NUR ---
Problems reprioritized. Patient report given, questions answered & plan of care reviewed with Kash Gardner
--- NOTE | 2019-04-18 19:00 | NUR ---
Patient in room ORTHO 4024. I have received report from Ya QUINTERO and had the opportunity to ask questions and assume patient care.
--- NOTE | 2019-04-18 20:06 | NUR ---
I asked the legal nurse consultant Hospitalist if we could keep the telemetry unit on since they are doing a Lexiscan in the am; and still working up his heart and GI issues. He said to keep the Telemetry on as previous ordered for 24 hours only since minimal ectopy.
[2019-04-18] MEDS ORDERED: insulin glargine (Lantus) pen - multi-dose SQ SCH (21:00)
[2019-04-18] MEDS ORDERED: atorvastatin 20mg tablet PO SCH (21:00)
[2019-04-18] MEDS ORDERED: QUEtiapine 25mg tablet PO SCH (21:00)
[2019-04-18] MEDS ORDERED: famotidine 20mg tablet PO SCH (21:00)
[2019-04-18] MEDS: nitroGLYCERIN 0.4mg/hour patch TD SCH (21:13)
[2019-04-18 22:00] VITALS: BP 159/100
[2019-04-19] VITALS (10 sets, daily range): BP systolic 137–169; BP diastolic 68–86
[2019-04-19 06:36] LABS: ANION GAP 9 (8-16); CHLORIDE 107 MMOL/L (99-107); GLUCOSE 140 MG/DL (70-104); POTASSIUM 3.6 MMOL/L (3.5-5.1); SODIUM 146 MMOL/L (135-145); TOTAL CARBON DIOXIDE 30.4 MMOL/L (24-32)
[2019-04-19 06:37] LABS: ALBUMIN 3.4 G/DL (3.4-5.0); BLOOD UREA NITROGEN 13 MG/DL (7-18); BUN/CREATININE RATIO 15.1 (5.4-32.0); CALCIUM 8.5 MG/DL (8.5-10.1); CREATININE 0.86 MG/DL (0.60-1.10); eGFR > 90 ML/MIN
[2019-04-19 06:40] LABS: BASOPHILS % (AUTO) 0.4 % (0-1); EOSINOPHILS # (AUTO) 0.1 X10'3 (0-0.9); EOSINOPHILS % (AUTO) 1.6 % (0-6); HEMATOCRIT 32.8 % (42.0-52.0); HEMOGLOBIN 10.9 g/dl (14.0-17.9); LYMPHOCYTES # (AUTO) 1.4 X10'3 (1.1-4.8); LYMPHOCYTES % (AUTO) 31.6 % (21-51); MEAN CORPUSCULAR HEMOGLOBIN 29.5 PG (27.0-31.0); MEAN CORPUSCULAR HGB CONC 33.1 g/dL (33.0-36.5); MEAN CORPUSCULAR VOLUME 88.9 FL (78-98); MEAN PLATELET VOLUME 7.8 FL (7.4-10.4); MONOCYTES # (AUTO) 0.4 X10'3 (0-0.9); MONOCYTES % (AUTO) 9.3 % (2-12); NEUTROPHILS # (AUTO) 2.6 X10'3 (1.8-7.7); NEUTROPHILS % (AUTO) 57.1 % (42-75); PLATELET COUNT 224 X10'3 (140-440); RED BLOOD COUNT 3.69 X10'6 (4.70-6.10); RED CELL DISTRIBUTION WIDTH 15.7 % (11.5-14.5); WHITE BLOOD COUNT 4.5 X10'3 (4.5-11.0)
[2019-04-19] MEDS: FLUoxetine 20mg capsule PO SCH (07:48)
[2019-04-19] MEDS: aspirin 81mg tablet.DR PO SCH (07:48)
[2019-04-19] MEDS: pantoprazole 40mg Tablet.DR PO SCH (07:48)
[2019-04-19] MEDS: magnesium oxide 400mg tablet PO SCH (07:48)
[2019-04-19] MEDS: fenofibrate 48mg tablet PO SCH (07:48)
[2019-04-19] MEDS: levoTHYROXINE 175mcg tablet PO SCH (07:48)
[2019-04-19] MEDS: HYDROchlorothiazide 25mg tablet PO SCH (07:48)
[2019-04-19] MEDS: multivitamins, therapeutics tablet PO SCH (07:48)
[2019-04-19] MEDS: furosemide 20 MG/2 ML vial IV SCH (07:48)
[2019-04-19] MEDS: K and/or MAG REPLACEMENT MC SCH (08:00)
[2019-04-19] MEDS: OMEGA-3/DHA/EPA/FISH OIL 1 EACH CAPSULE.DR PO SCH (08:00)
[2019-04-19] MEDS: metoprolol succinate 25mg (24-HOUR) SR. Tablet PO SCH (10:16)
--- NOTE | 2019-04-19 15:35 | NUR ---
Patient stable for discharge home with today. All discharge instructions given to patient and . IV out and all belongings sent with patient
== END 2019-04-19 16:10 | disposition home or self-care (01) ==
LOC: ER 13:04 → ORTHO 4S 21:22
PROVIDERS: ADMIT Internal Medicine; ATTEND Internal Medicine
DX: R53.1 Weakness (principal); R19.7 Diarrhea, unspecified; I10 Essential (primary) hypertension; E78.5 Hyperlipidemia, unspecified; E03.9 Hypothyroidism, unspecified; E11.9 Type 2 diabetes mellitus without complications; R07.89 Other chest pain; E78.00 Pure hypercholesterolemia, unspecified; E86.0 Dehydration; E83.42 Hypomagnesemia; G47.00 Insomnia, unspecified; F32.9 Major depressive disorder, single episode, unspecified; Z79.84 Long term (current) use of oral hypoglycemic drugs; Z83.3 Family history of diabetes mellitus; Z87.891 Personal history of nicotine dependence; K21.9 Gastro-esophageal reflux disease without esophagitis
CPT/HCPCS: 36415; 71045; 78452; 80048; 80053; 80305; 80320; 81003; 82948; 83036; 83540; 83550; 83735; 83880; 84484; 85025; 85610; 85730; 87081; 93005; 93017; 93308; 96361; 96374; 96375; 96376; 99284; A9500; C9113; G0378; J1200; J1940; J2785; Q0163; J1815

== ENCOUNTER 2023-05-16 09:34 | Outpatient (CLI) | payer BC ==
[~2023-05-16 09:34] MED LIST changes: -GABA-532 PO; +MAGN200T8 PO; -MORPHINE INTSP; +MULT-620 PO; -MULT1TAB74 PO; +QUET25TA PO; -TRAZ-219 PO; +TRAZ-256 PO
[2023-05-16 10:16] LABS: BASOPHILS % (AUTO) 0.5 % (0-1); EOSINOPHILS # (AUTO) 0.1 X10'3 (0-0.9); EOSINOPHILS % (AUTO) 1.5 % (0-6); HEMATOCRIT 40.2 % (42.0-52.0); HEMOGLOBIN 13.2 g/dl (14.0-17.9); LYMPHOCYTES # (AUTO) 1.2 X10'3 (1.1-4.8); LYMPHOCYTES % (AUTO) 24.9 % (21-51); MEAN CORPUSCULAR HEMOGLOBIN 28.5 PG (27.0-31.0); MEAN CORPUSCULAR HGB CONC 32.8 g/dL (33.0-36.5); MEAN PLATELET VOLUME 7.6 FL (7.4-10.4); MONOCYTES # (AUTO) 0.5 X10'3 (0-0.9); MONOCYTES % (AUTO) 9.3 % (2-12); NEUTROPHILS # (AUTO) 3.1 X10'3 (1.8-7.7); NEUTROPHILS % (AUTO) 63.8 % (42-75); PLATELET COUNT 229 X10'3 (140-440); RED BLOOD COUNT 4.62 X10'6 (4.70-6.10); RED CELL DISTRIBUTION WIDTH 16.1 % (11.5-14.5); WHITE BLOOD COUNT 4.9 X10'3 (4.5-11.0)
== END 2023-05-16 23:59 | disposition home or self-care (01) ==
LOC: LAB 09:34
PROVIDERS: ATTEND Anesthesiology
DX: M51.16 Intervertebral disc disorders with radiculopathy, lumbar region (principal); G83.4 Cauda equina syndrome; G89.4 Chronic pain syndrome; T50.905A Adverse effect of unspecified drugs, medicaments and biological substances, initial encounter; M25.519 Pain in unspecified shoulder; Z96.9 Presence of functional implant, unspecified; R53.81 Other malaise; Z79.891 Long term (current) use of opiate analgesic
CPT/HCPCS: 36415; 85025; 86140

== ENCOUNTER 2024-06-23 09:58 | Emergency (ER) | payer BC ==
[~2024-06-23] VITALS: Ht 193 cm; Wt 127.8 kg
[~2024-06-23 09:58] MED LIST changes: +ATOR-411 PO; -ATOR40TA7 PO
[2024-06-23 10:04] VITALS: TEMP 98
[2024-06-23 10:24] LABS: BASOPHILS % (AUTO) 0.5 % (0-1); EOSINOPHILS # (AUTO) 0.1 X10'3 (0-0.9); EOSINOPHILS % (AUTO) 1.1 % (0-6); HEMATOCRIT 38.7 % (42.0-52.0); HEMOGLOBIN 12.7 g/dl (14.0-17.9); LYMPHOCYTES # (AUTO) 0.7 X10'3 (1.1-4.8); LYMPHOCYTES % (AUTO) 12.2 % (21-51); MEAN CORPUSCULAR HEMOGLOBIN 28.6 PG (27.0-31.0); MEAN CORPUSCULAR HGB CONC 32.9 g/dL (33.0-36.5); MEAN CORPUSCULAR VOLUME 86.9 FL (78-98); MEAN PLATELET VOLUME 7.6 FL (7.4-10.4); MONOCYTES # (AUTO) 0.4 X10'3 (0-0.9); MONOCYTES % (AUTO) 6.4 % (2-12); NEUTROPHILS # (AUTO) 4.8 X10'3 (1.8-7.7); NEUTROPHILS % (AUTO) 79.8 % (42-75); PLATELET COUNT 242 X10'3 (140-440); RED BLOOD COUNT 4.45 X10'6 (4.70-6.10)
[2024-06-23 10:45] LABS: ALBUMIN 3.9 G/DL (3.4-5.0); ANION GAP 6 (8-16); BLOOD UREA NITROGEN 14 MG/DL (7-18); BUN/CREATININE RATIO 15.7 (10.0-20.0); CALCIUM 9.2 MG/DL (8.5-10.1); CHLORIDE 101 MMOL/L (99-107); CREATININE 0.89 MG/DL (0.60-1.10); GLUCOSE 220 MG/DL (70-104); POTASSIUM 4.3 MMOL/L (3.5-5.1); SODIUM 139 MMOL/L (135-145); TOTAL CARBON DIOXIDE 32.5 MMOL/L (24-32); eCRCL 116 ML/MIN; eGFR 89 ML/MIN
[2024-06-23 11:04] LABS: ALANINE AMINOTRANSFERASE 34 U/L (12-78); ALKALINE PHOSPHATASE 68 IU/L (46-116); ASPARTATE AMINO TRANSFERASE 32 U/L (10-37); BILIRUBIN,TOTAL 0.9 MG/DL (0.1-1.0); PRO BRAIN NATRIURETIC PEPTIDE 497 PG/ML (0-125)
[2024-06-23 12:24] VITALS: BP 175/84; PULSE 66; RESP 18; O2SAT 97
== END 2024-06-23 12:27 | disposition home or self-care (01) ==
LOC: ER 09:58
DX: R07.89 Other chest pain (principal); E78.00 Pure hypercholesterolemia, unspecified; I10 Essential (primary) hypertension; E11.9 Type 2 diabetes mellitus without complications; E03.9 Hypothyroidism, unspecified; K21.9 Gastro-esophageal reflux disease without esophagitis; E78.5 Hyperlipidemia, unspecified; F32.A Depression, unspecified; Z79.82 Long term (current) use of aspirin; Z79.899 Other long term (current) drug therapy
CPT/HCPCS: 36415; 71045; 80053; 83880; 84484; 85025; 93005; 99285